=== PATIENT | female | born 1960 | race Caucasian/White ===

== ENCOUNTER 2016-08-08 16:06 | Emergency (ER) | payer MEDICAID ==
[~2016-08-08] VITALS: Ht 154.9 cm; Wt 81.6 kg
[2016-08-08 16:14] VITALS: BP_SYST 111
[2016-08-08 17:02] LABS: BILIRUBIN,URINE 1+ (NEGATIVE); BLOOD, URINE 3+ (NEGATIVE); CLARITY/URINE CLOUDY (CLEAR); COLOR,URINE YELLOW (YELLOW); GLUCOSE,URINE NEGATIVE (NEGATIVE); KETONES,URINE TRACE (NEGATIVE); LEUKOCYTE ESTERASE ,URINE 3+ (NEGATIVE); NITRITE, URINE NEGATIVE (NEGATIVE); PH,URINE 5.5 (5.0-8.0); PROTEIN URINE 2+ (NEGATIVE)
[2016-08-08 17:15] LABS: BACTERIA,URINE MODERATE /HPF (None Seen); RBC,URINE 50-80 /HPF (0-3); WBC,URINE >100 /HPF (0-3)
[2016-08-08] MEDS ORDERED: KETOROLAC TROMETHAMINE 60 MG/2 ML VIAL IM ONE (17:30)
[2016-08-08] MEDS ORDERED: cefTRIAXone 1 GM VIAL IM ONE (17:30)
[2016-08-08] MEDS ORDERED: LIDOCAINE 1%, 20 ML MDV 20 ML ONE (17:42)
[2016-08-08 17:59] VITALS: BP_SYST 111
== END 2016-08-08 18:00 | disposition home or self-care (01) ==
LOC: SED 16:06
DX: N39.0 Urinary tract infection, site not specified (principal); Z90.710 Acquired absence of both cervix and uterus
CPT/HCPCS: 81000; 96372; 99284; J0696; J1885; J2001